=== PATIENT | male | born 1960 | race Two or more races ===

== ENCOUNTER 2020-12-27 14:11 | Emergency (ER) | payer MEDICAID, OTHER ==
[~2020-12-27] VITALS: Ht 172.7 cm; Wt 88.5 kg
[2020-12-27] MEDS ORDERED: ZINC SULFATE 220mg CAP or TAB PO ONE (16:45)
[2020-12-27] MEDS ORDERED: ASCORBIC ACID 500 MG TAB PO ONE (16:45)
[2020-12-27] MEDS ORDERED: DexAMETHasone SOD PHOS 10MG/1ML VIAL INJ IV ONE (16:45)
[2020-12-27] MEDS ORDERED: AZITHROMYCIN 500MG/ 250ML 250 ML IV ONE (16:45)
[2020-12-27 18:16] LABS: Basophils # (auto) 0 10 ^3/uL (0-0.2); Basophils % (auto) 0.2 % (0.0-2.0); Eosinophils # (auto) 0 10 ^3/uL (0-0.8); Hematocrit 43.2 % (41.0-53.0); Hemoglobin 15.1 g/dL (13.5-17.5); Lymphocytes # (auto) 0.5 10 ^3/uL (0.4-5.4); Lymphocytes % (auto) 10.8 % (10.0-50.0); Mean Corpuscular Hemoglobin 29.9 pg (28.0-32.0); Mean Corpuscular Volume 85.5 fL (80.0-100.0); Monocytes # (auto) 0.6 10 ^3/uL (0-1.3); Neutrophils # (auto) 3.7 10 ^3/uL (1.6-8.6); Nucleated Red Blood Cells % 0.1 %; Platelet Count (auto) 177 10^3/uL (140-450); Red Blood Cells 5.05 10^6/uL (4.5-5.90); Red Cell Distribution Width 13.5 % (11.8-14.3); White Blood Cell 4.9 10^3/uL (4.4-10.8)
[2020-12-27 18:28] LABS: Albumin 3.2 g/dL (3.4-5.0); BUN/Creatinine Ratio 13.2; Calcium 8.1 mg/dL (8.5-10.1); Magnesium 2.3 mg/dL (1.6-2.6); Potassium 3.6 mmol/L (3.5-5.1)
[2020-12-27 18:54] LABS: CRP High Sensitivity 6.95 mg/dL (< 0.3)
[2020-12-27 18:57] LABS: Thyroid Stimulating Hormone 1.56 uIU/mL (0.358-3.74)
[2020-12-27 19:25] LABS: Bilirubin, Total 0.7 mg/dL (0.2-1.0)
[2020-12-27 19:26] LABS: Total Protein 7.3 g/dL (6.4-8.2)
[2020-12-27 20:00] VITALS: BP 138/61
== END 2020-12-27 20:24 | disposition home or self-care (01) ==
LOC: ER 14:11
DX: U07.1 COVID-19 (principal); E11.9 Type 2 diabetes mellitus without complications
CPT/HCPCS: 36415; 71045; 80053; 82306; 83036; 83615; 83735; 84443; 85025; 85379; 86141; 87426; 96365; 96375; 99285; J0456; J1100; 96366